=== PATIENT | female | born 1960 | race Caucasian/White ===

== ENCOUNTER 2023-10-04 09:17 | Emergency (ER) | payer BC ==
[2023-10-04 09:30] VITALS: BP 157/110; PULSE 84
[2023-10-04] MEDS: Ketorolac 30 MG/ML SDV IM ONE (10:01)
[2023-10-04] MEDS: Orphenadrine 60 MG/2 ML Inj IM ONE (10:02)
[2023-10-04 10:13] LABS: BASOPHILS ABSOLUTE AUTO 0.06 10^3/uL (0.00-0.10); BASOPHILS PERCENT AUTO 0.4 % (0.0-1.0); EOSINOPHILS ABSOLUTE AUTO 0.08 10^3/uL (0.10-0.30); EOSINOPHILS PERCENT AUTO 0.6 % (1.0-3.0); HEMATOCRIT 43.9 % (37.0-47.0); HEMOGLOBIN 14.4 g/dL (12.0-16.0); IMMATURE GRAN ABSOLUTE AUTO 0.01 10^3/uL (0.00-0.50); IMMATURE GRAN PERCENT AUTO 0.1 % (0.0-5.0); LYMPHOCYTES ABSOLUTE AUTO 1.28 10^3/uL (1.00-4.00); LYMPHOCYTES PERCENT AUTO 9.5 % (20.0-40.0); MEAN CORPUSCULAR HEMOGLOBIN 29.4 pg (27.0-31.0); MEAN CORPUSCULAR HGB CONC 32.8 g/dL (32.0-36.0); MEAN CORPUSCULAR VOLUME 89.8 fL (82.0-92.0); MEAN PLATELET VOLUME 9.1 fL (7.4-10.4); MONOCYTES PERCENT AUTO 8.9 % (2.0-8.0); NEUTROPHILS ABSOLUTE AUTO 10.83 10^3/uL (2.50-7.00); NEUTROPHILS PERCENT AUTO 80.5 % (50.0-70.0); PLATELET COUNT,PLT 338 10^3/uL (150-400); RED BLOOD CELL COUNT 4.89 10^6/uL (3.80-5.50); RED CELL DISTRIBUTION WIDTH 13.9 % (11.5-14.5); WHITE BLOOD CELL COUNT,WBC 13.46 10^3/uL (5.00-10.00)
[2023-10-04 10:29] LABS: ANION GAP 15.7 mmol/L (5-15); CARBON DIOXIDE,CO2 27.2 mmol/L (21.0-32.0); CREATININE 0.61 mg/dL (0.51-1.17); EST CRCL DRUG DOSING (CG) 83.63 mL/min; POTASSIUM,K 3.9 mmol/L (3.5-5.1)
[2023-10-04] MEDS: Iopamidol 755 Mg/ML 100 ML Bottle IV ONE (10:45)
[2023-10-04] MEDS: Sodium Chloride 0.9% 50 ML IV SCH (10:45)
== END 2023-10-04 11:42 | disposition home or self-care (01) ==
LOC: KA.ED 09:17
DX: M62.838 Other muscle spasm (principal); M43.6 Torticollis; I10 Essential (primary) hypertension; I25.10 Atherosclerotic heart disease of native coronary artery without angina pectoris; J44.9 Chronic obstructive pulmonary disease, unspecified; K21.9 Gastro-esophageal reflux disease without esophagitis; E78.00 Pure hypercholesterolemia, unspecified; E66.9 Obesity, unspecified; M19.90 Unspecified osteoarthritis, unspecified site; Z68.21 Body mass index [BMI] 21.0-21.9, adult; Z79.82 Long term (current) use of aspirin; Z79.899 Other long term (current) drug therapy; Z88.2 Allergy status to sulfonamides
CPT/HCPCS: 70496; 70498; 80048; 85025; 96372; 99284; J1885; J2360; J3490; Q9967

== ENCOUNTER 2023-10-05 11:12 | Emergency (ER) | payer BC ==
[2023-10-05 11:27] LABS: BASOPHILS ABSOLUTE AUTO 0.04 10^3/uL (0.00-0.10); BASOPHILS PERCENT AUTO 0.1 % (0.0-1.0); HEMATOCRIT 49.4 % (37.0-47.0); HEMOGLOBIN 16.6 g/dL (12.0-16.0); IMMATURE GRAN ABSOLUTE AUTO 0.07 10^3/uL (0.00-0.50); IMMATURE GRAN PERCENT AUTO 0.3 % (0.0-5.0); LYMPHOCYTES ABSOLUTE AUTO 0.73 10^3/uL (1.00-4.00); LYMPHOCYTES PERCENT AUTO 2.7 % (20.0-40.0); MEAN CORPUSCULAR HEMOGLOBIN 29.5 pg (27.0-31.0); MEAN CORPUSCULAR HGB CONC 33.6 g/dL (32.0-36.0); MEAN CORPUSCULAR VOLUME 87.9 fL (82.0-92.0); MEAN PLATELET VOLUME 9.5 fL (7.4-10.4); MONOCYTES ABSOLUTE AUTO 1.93 10^3/uL (0.10-0.80); MONOCYTES PERCENT AUTO 7.2 % (2.0-8.0); NEUTROPHILS ABSOLUTE AUTO 24.16 10^3/uL (2.50-7.00); NEUTROPHILS PERCENT AUTO 89.7 % (50.0-70.0); PLATELET COUNT,PLT 416 10^3/uL (150-400); RED BLOOD CELL COUNT 5.62 10^6/uL (3.80-5.50); WHITE BLOOD CELL COUNT,WBC 26.93 10^3/uL (5.00-10.00)
[2023-10-05] MEDS ORDERED: Sodium Chloride 0.9% 10 ML Syringe FLUSH PRN (11:32)
[2023-10-05] MEDS ORDERED: cefTRIAXone 2 GM Vial IVPUSH ONE (11:51)
[2023-10-05] MEDS ORDERED: fentaNYL 100 MCG/2 ML SDV IVPUSH ONE (12:00)
[2023-10-05 12:10] LABS: ALBUMIN 3.86 g/dL (3.40-5.00); ANION GAP 18.4 mmol/L (5-15); BILIRUBIN TOTAL 0.5 mg/dL (0.2-1.0); CALCIUM 9.4 mg/dL (8.7-10.3); CARBON DIOXIDE,CO2 23.8 mmol/L (21.0-32.0); CREATININE 0.8 mg/dL (0.51-1.17); EST CRCL DRUG DOSING (CG) 63.77 mL/min; POTASSIUM,K 3.2 mmol/L (3.5-5.1); PROTEIN TOTAL,TP 8.5 g/dL (6.4-8.2)
== END 2023-10-05 12:20 ==
LOC: KA.ED 11:12
DX: R29.1 Meningismus (principal); D72.829 Elevated white blood cell count, unspecified; I10 Essential (primary) hypertension; Z86.79 Personal history of other diseases of the circulatory system; E78.00 Pure hypercholesterolemia, unspecified; I25.10 Atherosclerotic heart disease of native coronary artery without angina pectoris; K21.9 Gastro-esophageal reflux disease without esophagitis; E66.9 Obesity, unspecified; Z68.21 Body mass index [BMI] 21.0-21.9, adult; Z79.899 Other long term (current) drug therapy; Z88.2 Allergy status to sulfonamides; Z20.822 Contact with and (suspected) exposure to COVID-19; F17.210 Nicotine dependence, cigarettes, uncomplicated
CPT/HCPCS: 36415; 80053; 83605; 85025; 87040; 87186; 96374; 96375; 99284; 99284-25; J0696; J3010; J3360; J3370; J7050; U0002

== ENCOUNTER 2023-12-24 16:59 | Inpatient (IN) | payer BC ==
[2023-12-24] MEDS: Sodium Chloride 0.9% 1,000 ML IV ONE ×2 (17:45→18:52)
[2023-12-24] MEDS: LORazepam 0.5 MG Tab PO ONE (17:46)
[2023-12-24 17:48] LABS: BASOPHILS ABSOLUTE AUTO 0.06 10^3/uL (0.00-0.10); BASOPHILS PERCENT AUTO 0.6 % (0.0-1.0); HEMATOCRIT 47.8 % (37.0-47.0); HEMOGLOBIN 15.5 g/dL (12.0-16.0); IMMATURE GRAN ABSOLUTE AUTO 0.01 10^3/uL (0.00-0.50); IMMATURE GRAN PERCENT AUTO 0.1 % (0.0-5.0); LYMPHOCYTES ABSOLUTE AUTO 1.19 10^3/uL (1.00-4.00); LYMPHOCYTES PERCENT AUTO 11.3 % (20.0-40.0); MEAN CORPUSCULAR HEMOGLOBIN 28.7 pg (27.0-31.0); MEAN CORPUSCULAR HGB CONC 32.4 g/dL (32.0-36.0); MEAN CORPUSCULAR VOLUME 88.5 fL (82.0-92.0); MEAN PLATELET VOLUME 9.1 fL (7.4-10.4); MONOCYTES ABSOLUTE AUTO 1.12 10^3/uL (0.10-0.80); MONOCYTES PERCENT AUTO 10.6 % (2.0-8.0); NEUTROPHILS ABSOLUTE AUTO 8.16 10^3/uL (2.50-7.00); NEUTROPHILS PERCENT AUTO 77.4 % (50.0-70.0); PLATELET COUNT,PLT 410 10^3/uL (150-400); RED CELL DISTRIBUTION WIDTH 13.5 % (11.5-14.5); WHITE BLOOD CELL COUNT,WBC 10.54 10^3/uL (5.00-10.00)
[2023-12-24 18:04] LABS: ANION GAP 20.4 mmol/L (5-15); BILIRUBIN TOTAL 0.3 mg/dL (0.2-1.0); CALCIUM 9.1 mg/dL (8.7-10.3); CARBON DIOXIDE,CO2 20.8 mmol/L (21.0-32.0); CREATININE 0.74 mg/dL (0.51-1.17); EST CRCL DRUG DOSING (CG) 68.94 mL/min; POTASSIUM,K 3.2 mmol/L (3.5-5.1); PROTEIN TOTAL,TP 8.2 g/dL (6.4-8.2)
[2023-12-24 18:29] LABS: INFLUENZA A NAA NEGATIVE (NEGATIVE); INFLUENZA B NAA NEGATIVE (NEGATIVE); RESPIRATORY SYNCYTIAL VIR NAA NEGATIVE (NEGATIVE)
[2023-12-24 18:31] LABS: CORONAVIRUS COVID-19 NAA POSITIVE (NEGATIVE)
[2023-12-24 19:37] LABS: BILIRUBIN,URINE NEGATIVE (NEGATIVE); COLOR,URINE YELLOW (YELLOW); GLUCOSE,URINE NEGATIVE (NEGATIVE); KETONES,URINE NEGATIVE (NEGATIVE); LEUKOCYTE ESTERASE,URINE NEGATIVE (NEGATIVE); NITRITE,URINE NEGATIVE (NEGATIVE); OCCULT BLOOD,URINE SMALL (NEGATIVE); PH,URINE 6.5 (5.0-9.0); PROTEIN,URINE 100 mg/dL (NEGATIVE); UROBILINOGEN,URINE 0.2 E.U./dL (0.2-1.0)
[2023-12-24 19:44] LABS: APPEARANCE,URINE SLIGHTLY CLOUDY (CLEAR); BACTERIA,URINE RARE /HPF (NONE TO FEW); EPITHELIAL CELLS,URINE FEW /LPF; HYALINE CASTS,URINE RARE; WBC,URINE 0-5 /HPF (0-5)
[2023-12-24 19:49] LABS: AMPHETAMINES SCREEN, URINE NEGATIVE (NEGATIVE); BARBITURATE SCREEN,URINE NEGATIVE (NEGATIVE); BENZODIAZEPINES SCREEN,URINE NEGATIVE (NEGATIVE); COCAINE METABOLITES,URINE NEGATIVE (NEGATIVE); METHADONE SCREEN, URINE NEGATIVE (NEGATIVE); METHAMPHETAMINES SCREEN, URINE NEGATIVE (NEGATIVE); OXYCODONE SCREEN,URINE NEGATIVE (NEGATIVE); PCP SCREEN,URINE NEGATIVE (NEGATIVE); PROPOXYPHENE SCREEN,URINE NEGATIVE (NEGATIVE); TCA SCREEN,URINE NEGATIVE (NEGATIVE); THC SCREEN,URINE 50 NG/ML POSITIVE (NEGATIVE)
[2023-12-24] MEDS ORDERED: Ondansetron 4 MG/2 ML SDV IV PRN (21:33)
[2023-12-24] MEDS ORDERED: Ondansetron 4 MG Tab.DIS PO PRN (21:33)
[2023-12-24] MEDS ORDERED: Docusate Sodium 100 MG Cap PO PRN (21:33)
[2023-12-24] MEDS ORDERED: Magnesium Hydroxide 400 MG/5 ML Susp 30 ML Cup PO PRN (21:33)
[2023-12-24] MEDS ORDERED: Albuterol/Ipratropium 3.0-0.5 MG/3 ML Neb Soln NEB PRN (22:13)
[2023-12-24] MEDS: Nicotine 14 MG/24 Hr Patch TRDERM SCH (23:05)
[2023-12-24] MEDS: REMDESIVIR 200 MG in Sodium Chloride 0.9% 100 ML IV ONE ×2 (23:07→23:40)
[2023-12-24] MEDS: Acetaminophen 325 MG Tab PO PRN (23:09)
[2023-12-24] MEDS: Potassium Chloride 10 MEQ Tab.ER PO ONE (23:09)
[2023-12-24] MEDS: Venlafaxine 150 MG Cap.ER PO SCH (23:14)
[2023-12-24] MEDS: Venlafaxine 37.5 MG Cap.ER PO SCH (23:14)
[2023-12-24] MEDS: Sodium Chloride 0.9% 50 ML IV SCH (23:50)
[2023-12-25] MEDS: amLODIPine 5 MG Tab PO SCH (06:30)
[2023-12-25 07:35] LABS: BASOPHILS ABSOLUTE AUTO 0.05 10^3/uL (0.00-0.10); BASOPHILS PERCENT AUTO 0.5 % (0.0-1.0); EOSINOPHILS ABSOLUTE AUTO 0.01 10^3/uL (0.10-0.30); EOSINOPHILS PERCENT AUTO 0.1 % (1.0-3.0); HEMATOCRIT 43.5 % (37.0-47.0); IMMATURE GRAN ABSOLUTE AUTO 0.01 10^3/uL (0.00-0.50); IMMATURE GRAN PERCENT AUTO 0.1 % (0.0-5.0); LYMPHOCYTES ABSOLUTE AUTO 1.36 10^3/uL (1.00-4.00); LYMPHOCYTES PERCENT AUTO 14.9 % (20.0-40.0); MEAN CORPUSCULAR HEMOGLOBIN 29.2 pg (27.0-31.0); MEAN CORPUSCULAR HGB CONC 32.2 g/dL (32.0-36.0); MEAN CORPUSCULAR VOLUME 90.6 fL (82.0-92.0); MEAN PLATELET VOLUME 9.2 fL (7.4-10.4); MONOCYTES ABSOLUTE AUTO 1.27 10^3/uL (0.10-0.80); MONOCYTES PERCENT AUTO 13.9 % (2.0-8.0); NEUTROPHILS ABSOLUTE AUTO 6.45 10^3/uL (2.50-7.00); NEUTROPHILS PERCENT AUTO 70.5 % (50.0-70.0); PLATELET COUNT,PLT 350 10^3/uL (150-400); RED CELL DISTRIBUTION WIDTH 13.5 % (11.5-14.5); WHITE BLOOD CELL COUNT,WBC 9.15 10^3/uL (5.00-10.00)
[2023-12-25 07:53] LABS: ALBUMIN 3.53 g/dL (3.40-5.00); ANION GAP 15.7 mmol/L (5-15); BILIRUBIN TOTAL 0.2 mg/dL (0.2-1.0); CALCIUM 8.7 mg/dL (8.7-10.3); CARBON DIOXIDE,CO2 25.4 mmol/L (21.0-32.0); CREATININE 0.56 mg/dL (0.51-1.17); EST CRCL DRUG DOSING (CG) 91.1 mL/min; MAGNESIUM 1.6 mg/dL (1.8-2.4); POTASSIUM,K 4.1 mmol/L (3.5-5.1); PROTEIN TOTAL,TP 7.3 g/dL (6.4-8.2)
[2023-12-25] MEDS: Losartan 50 MG Tab PO SCH (08:31)
[2023-12-25] MEDS: Cholecalciferol (Vitamin D3) 25 MCG Tab PO SCH (08:31)
[2023-12-25] MEDS: buPROPion 150 MG Tab.ER PO SCH (08:31)
[2023-12-25] MEDS: Enoxaparin 40 MG/0.4 ML Syringe SUBCUT SCH (08:33)
[2023-12-25] MEDS ORDERED: hydrALAZINE 10 MG Tab PO PRN (12:25)
[2023-12-25] MEDS: hydrALAZINE 10 MG Tab PO SCH (12:37)
[2023-12-25] MEDS: Magnesium Oxide 500 MG Tab PO SCH (12:38)
[2023-12-25] MEDS: Loperamide 2 MG Cap PO PRN (18:09)
[2023-12-25] MEDS ORDERED: Venlafaxine 37.5 MG Cap.ER PO SCH (21:00)
[2023-12-25] MEDS: LORazepam 0.5 MG Tab PO PRN (21:09)
[2023-12-25] MEDS: atorvaSTATin 10 MG Tab PO SCH (21:09)
[2023-12-25] MEDS: REMDESIVIR 100 MG in Sodium Chloride 0.9% 100 ML IV SCH (21:14)
[2023-12-25] MEDS: Sodium Chloride 0.9% 50 ML IV SCH (21:48)
[2023-12-26] MEDS: Folic Acid 1 MG Tab PO SCH (09:35)
== END 2023-12-26 14:16 | disposition home or self-care (01) | DRG 137 ==
LOC: KA.ED 16:59 → KA.MS 21:15
PROVIDERS: ADMIT Physician Assistant Surgical; ATTEND Family Medicine
PROC: XW033E5 Introduction of Remdesivir Anti-infective into Peripheral Vein, Percutaneous Approach, New Technology Group 5 (ICD-10-PCS; principal; 2023-12-24)
DX: U07.1 COVID-19 (principal); E86.0 Dehydration; I10 Essential (primary) hypertension; E78.5 Hyperlipidemia, unspecified; E87.20 Acidosis, unspecified; I25.10 Atherosclerotic heart disease of native coronary artery without angina pectoris; J12.82 Pneumonia due to coronavirus disease 2019; E78.00 Pure hypercholesterolemia, unspecified; K21.9 Gastro-esophageal reflux disease without esophagitis; J44.9 Chronic obstructive pulmonary disease, unspecified; E87.6 Hypokalemia; E11.9 Type 2 diabetes mellitus without complications; F41.8 Other specified anxiety disorders; M19.90 Unspecified osteoarthritis, unspecified site; F10.10 Alcohol abuse, uncomplicated; D50.9 Iron deficiency anemia, unspecified; Z98.49 Cataract extraction status, unspecified eye; Z86.010 Personal history of colon polyps; Z88.2 Allergy status to sulfonamides; Z88.8 Allergy status to other drugs, medicaments and biological substances; Z98.41 Cataract extraction status, right eye; Z98.42 Cataract extraction status, left eye; Z98.890 Other specified postprocedural states; Z90.710 Acquired absence of both cervix and uterus; Z98.51 Tubal ligation status
CPT/HCPCS: 0241U; 36415; 71046; 80053; 80305-QW; 81001; 83605; 83735; 85025; 87040; 96360; 96361; 99284; 99285-25; A9270-GY; J0248; J1650; J3490; J7030; Q3014

== ENCOUNTER 2024-07-23 09:44 | Day surgery (SDC) | payer BC ==
[2024-07-23] MEDS ORDERED: Sodium Chloride 0.9% 10 ML Syringe FLUSH PRN (10:00)
[2024-07-23] MEDS: Lactated Ringers 1,000 ML IV SCH (10:34)
[2024-07-23] MEDS ORDERED: Midazolam 1 MG/ML 2 ML SDV ONE (10:48)
[2024-07-23] MEDS ORDERED: Propofol 200 MG/20 ML SDV ONE (10:49)
== END 2024-07-23 13:03 | disposition home or self-care (01) ==
LOC: KA.SDS 09:44
PROVIDERS: ATTEND Family Medicine
DX: K52.831 Collagenous colitis (principal); K62.89 Other specified diseases of anus and rectum; K57.30 Diverticulosis of large intestine without perforation or abscess without bleeding; K64.8 Other hemorrhoids; I10 Essential (primary) hypertension; E78.2 Mixed hyperlipidemia; K21.9 Gastro-esophageal reflux disease without esophagitis; F41.9 Anxiety disorder, unspecified; F32.A Depression, unspecified; Z79.899 Other long term (current) drug therapy
CPT/HCPCS: 00811; 45380; J2250; J2704; J7120; J3490

== ENCOUNTER 2025-10-09 19:28 | Emergency (ER) | payer BC | END 2025-10-09 20:05 | disposition home or self-care (01) | LOC: KA.ED 19:28 | DX: M54.42 Lumbago with sciatica, left side (principal); Z96.642 Presence of left artificial hip joint; Z90.710 Acquired absence of both cervix and uterus; Z88.2 Allergy status to sulfonamides; Z88.8 Allergy status to other drugs, medicaments and biological substances; Z79.899 Other long term (current) drug therapy | CPT/HCPCS: 99283; A9270-GY ==